=== PATIENT | female | born 1985 | race Caucasian/White ===

== ENCOUNTER 2025-03-13 16:53 | Outpatient (CLI) | payer OTHER | END 2025-03-13 17:39 | disposition home or self-care (01) | LOC: NST 16:53 | PROVIDERS: ATTEND Obstetrics & Gynecology | DX: Z3A.28 28 weeks gestation of pregnancy (principal) ==

== ENCOUNTER 2025-04-04 00:05 | Outpatient (CLI) | payer OTHER ==
[2025-04-03 23:20] VITALS: BP 118/79
[2025-04-04 04:01] VITALS: BP 105/65; O2SAT 100
[2025-04-04 06:06] VITALS: BP 103/66; O2SAT 100
[2025-04-04 09:31] VITALS: BP 103/66
[2025-04-04] MEDS ORDERED: BETAMETHASONE ACETATE,SOD PHOS 30 MG/5 ML ML IM STA (12:35)
[2025-04-05] MEDS ORDERED: BETAMETHASONE ACETATE,SOD PHOS 30 MG/5 ML ML IM NR (12:00)
== END 2025-04-04 14:31 | disposition home or self-care (01) ==
LOC: OBS/DEL 00:05
PROVIDERS: ATTEND Obstetrics & Gynecology
DX: O26.893 Other specified pregnancy related conditions, third trimester (principal); Z3A.31 31 weeks gestation of pregnancy

== ENCOUNTER 2025-05-20 11:52 | Inpatient (IN) | payer OTHER ==
[~2025-05-20] VITALS: Ht 160 cm; Wt 2.7 kg
[2025-05-21 23:40] VITALS: BP 125/78
[2025-05-22] MEDS ORDERED: RINGERS SOLUTION,LACTATED 1,000 ML IV SCH (00:45)
[2025-05-22] MEDS ORDERED: MORPHINE SULFATE 4 MG/ML CARTRIDGE IV PRN (00:45)
[2025-05-22] MEDS ORDERED: IRON325 MG (01:06)
[2025-05-22] MEDS ORDERED: PRENATAL TABLE1 EAC1 (01:06)
[2025-05-22 01:31] LABS: BASO % 0.2 % (0.1-1.2); EOS # 0.07 (0.04-0.54); EOS % 0.6 % (0.7-7.0); LYMPH # 1.89 (1.18-3.74); LYMPH % 16.0 % (19.3-53.1); MEAN PLATELET VOLUME 12.20 fl (9.4-12.4); MONO # 1.20 (0.24-0.82); MONO % 10.2 % (4.7-12.5); NEUT # 8.53 (1.56-6.13); NEUT % 72.4 % (34.0-71.1); RED CELL DISTRIBUTION WIDTH 12.5 % (11.6-14.4)
[2025-05-22 02:02] LABS: ALT/SGPT 23.0 U/L (12-78); AST/SGOT 27.0 U/L (15-37); BILIRUBIN TOTAL 0.35 mg/dL (0.3-1.2); BUN CREA RATIO 17.0 (7.0-25.0); CREATININE SERUM 0.52 mg/dL (0.55-1.02); GFR 130.6; GLOBULINA 3.8 G/DL (2.4-3.5); GLUCOSE FASTING 71.0 mg/dL (65-100); OSMOLALITY SERUM 273.0 MOSM/KG (275-295)
[2025-05-22 02:09] LABS: INR < 0.93
[2025-05-22 03:02] VITALS: BP 129/77
[2025-05-22 06:46] VITALS: BP 132/86
[2025-05-22 07:41] VITALS: BP 135/85
[2025-05-22] MEDS ORDERED: OXYTOCIN 500 ML IV ONE (11:00)
[2025-05-22 11:01] VITALS: BP 134/86
[2025-05-22 15:15] VITALS: BP 136/81
[2025-05-22] MEDS ORDERED: CITRIC ACID/SODIUM CITRATE 30 ML BLIST.PACK PO SCH (16:00)
[2025-05-22] MEDS ORDERED: CEFAZOLIN SODIUM 1,000 MG VIAL IV SCH (16:00)
[2025-05-22] MEDS ORDERED: OXYTOCIN 10 UNITS/ML VIAL IV ONE (18:30)
[2025-05-22] MEDS ORDERED: ERYTHROMYCIN BASE OPHT 1GM EACH TUBE OP ONE (18:30)
[2025-05-22] MEDS ORDERED: OXYTOCIN 1,000 ML IV ONE (19:30)
[2025-05-22] MEDS ORDERED: KETOROLAC TROMETHAMINE 30 MG VIAL IV SCH (19:30)
[2025-05-22] MEDS ORDERED: KETOROLAC TROMETHAMINE 30 MG VIAL IV ONE (19:30)
[2025-05-22] MEDS ORDERED: MORPHINE SULFATE 4 MG/ML CARTRIDGE IV SCH (21:00)
[2025-05-22 21:36] VITALS: BP 118/69
[2025-05-23] VITALS: BP 106/60
[2025-05-23 04:30] VITALS: BP 120/72
[2025-05-23] MEDS ORDERED: ACETAMINOPHEN 500 MG GEL..CAP PO SCH (06:00)
[2025-05-23 06:43] LABS: BASO % 0.1 % (0.1-1.2); EOS # 0.01 (0.04-0.54); EOS % 0.1 % (0.7-7.0); LYMPH # 1.33 (1.18-3.74); LYMPH % 7.2 % (19.3-53.1); MEAN PLATELET VOLUME 11.30 fl (9.4-12.4); MONO # 1.25 (0.24-0.82); MONO % 6.8 % (4.7-12.5); NEUT # 15.61 (1.56-6.13); NEUT % 85.0 % (34.0-71.1); RED CELL DISTRIBUTION WIDTH 12.7 % (11.6-14.4)
[2025-05-23 08:59] VITALS: BP 115/72; O2SAT 97
[2025-05-23] MEDS ORDERED: PNV,CALCIUM 72/IRON/FOLIC ACID 1 TAB TABLET PO SCH (09:00)
[2025-05-23] MEDS ORDERED: IRON FUM,PS/FOLIC ACID/VITC/B3 1 CAP CAPSULE PO SCH (09:00)
[2025-05-23] MEDS ORDERED: GABAPENTIN 300 MG CAPSULE PO SCH (09:00)
[2025-05-23] MEDS ORDERED: DOCUSATE SODIUM 100MG CAP PO SCH (09:00)
[2025-05-23] MEDS ORDERED: SIMETHICONE 125 MG CAPSULE PO SCH (09:00)
[2025-05-23 16:00] VITALS: BP 129/80
[2025-05-24 03:01] VITALS: BP 115/80; O2SAT 99
[2025-05-24 08:51] VITALS: BP 127/85
[2025-05-24 17:00] VITALS: BP 129/79
[2025-05-25 00:58] VITALS: BP 120/78
[2025-05-25 08:00] VITALS: BP 119/78; O2SAT 99
== END 2025-05-25 15:21 | disposition home or self-care (01) | DRG 788 ==
LOC: LDR 05-22 00:35 → O/R 05-22 16:14 → OB/GYN 05-22 16:59
PROVIDERS: Obstetrics & Gynecology Gynecology; ADMIT Obstetrics & Gynecology; ATTEND Obstetrics & Gynecology
PROC: 4A1HXCZ Monitoring of Products of Conception, Cardiac Rate, External Approach (ICD-10-PCS; 2025-05-22)
PROC: 10D00Z1 Extraction of Products of Conception, Low, Open Approach (ICD-10-PCS; principal; 2025-05-22 15:00)
DX: O82 Encounter for cesarean delivery without indication (principal); O62.1 Secondary uterine inertia; Z3A.38 38 weeks gestation of pregnancy; Z37.0 Single live birth

== ENCOUNTER 2025-05-28 11:58 | Outpatient (CLI) | payer OTHER ==
[~2025-05-28 11:58] MED LIST: IRON325 MG; PRENATAL TABLE1 EAC1
[2025-05-28 12:47] LABS: BASO % 0.3 % (0.1-1.2); EOS # 0.19 (0.04-0.54); EOS % 1.9 % (0.7-7.0); LYMPH # 1.64 (1.18-3.74); LYMPH % 16.7 % (19.3-53.1); MEAN PLATELET VOLUME 9.20 fl (9.4-12.4); MONO # 0.65 (0.24-0.82); MONO % 6.6 % (4.7-12.5); NEUT # 7.18 (1.56-6.13); NEUT % 73.3 % (34.0-71.1); RED CELL DISTRIBUTION WIDTH 13.4 % (11.6-14.4)
== END 2025-05-28 12:02 | disposition home or self-care (01) ==
LOC: LAB 11:58
DX: Z00.00 Encounter for general adult medical examination without abnormal findings (principal)